=== PATIENT | female | born 1970 | race Caucasian/White ===

== ENCOUNTER 2019-10-13 08:41 | Emergency (ER) | payer MEDICAID ==
[2019-10-13] MEDS ORDERED: Sodium Chloride 0.9% Inhalation Soln 3 ML Neb INH PRN (09:15)
[2019-10-13] MEDS ORDERED: Racepinephrine 2.25% 0.5 ML Neb Soln NEB ONE (09:15)
[2019-10-13] MEDS ORDERED: LORazepam 2 MG/ML SDV IVPUSH ONE (09:17)
[2019-10-13] MEDS ORDERED: methylPREDNISolone Sodium Succinate 125 MG/2 ML SDV IVPUSH ONE (09:17)
[2019-10-13] MEDS ORDERED: Sodium Chloride 0.9% 10 ML Syringe FLUSH PRN (09:17)
--- NOTE | 2019-10-13 09:25 | EDM.PDOC ---
ED HPI GENERAL MEDICAL PROBLEM - General Chief Complaint: Respiratory Problem Stated Complaint: THROAT SWELLING FROM INFLUENZA B Time Seen by Provider: 10/13/19 09:08 Source of Information: Reports: Patient, Family, RN Notes Reviewed - History of Present Illness INITIAL COMMENTS - FREE TEXT/NARRATIVE: 41-year-old female comes in with symptoms of sore throat, difficulty breathing. Her throat is "swollen, making it difficult for her to breathe". She feels that she needs to cough but is is trying not to cough because of the throat discomfort that goes with that. Family member was ill with influenza last week did not get a flu shot this year. He does have some headache and achiness. It is extremely painful to swallow. She does not smoke. She denies history of asthma, COPD. Throat Pain Score (Numeric/FACES): 7 - Related Data Allergies Allergy/AdvReac Type Severity Reaction Status Date / Time No Known Allergies Allergy Verified 10/13/19 08:56 Home Meds: Home Meds FLUoxetine HCl [Fluoxetine HCl] 20 mg PO DAILY 08/26/18 [History] buPROPion [buPROPion XL] 150 mg PO BEDTIME 08/26/18 [History] Past Medical History - Past Health History Medical/Surgical History: Denies Medical/Surgical History Psychiatric History: Reports: Anxiety, Depression - Past Surgical History Musculoskeletal Surgical History: Reports: Other (See Below) Other Musculoskeletal Surgeries/Procedures:: bunion Social & Family History - Family History Family Medical History: Noncontributory - Tobacco Use Smoking Status *Q: Never Smoker - Caffeine Use Caffeine Use: Reports: None - Recreational Drug Use Recreational Drug Use: No - Living Situation & Occupation Living situation: Reports: , Single Occupation: Employed ED ROS GENERAL - Review of Systems Review Of Systems: See Below Constitutional: Reports: Fever, Chills HEENT: Reports: Rhinitis, Throat Pain Respiratory: Reports: Shortness of Breath (Mild nasal and sinus congestion), Wheezing, Cough (Nonproductive) Cardiovascular: Reports: Chest Pain GI/Abdominal: Denies: Abdominal Pain (With coughing), Nausea, Vomiting Skin: Denies: Rash Neurological: Reports: Headache ED EXAM, GENERAL - Physical Exam Exam: See Below General Appearance: Alert, Anxious, Moderate Distress Eye Exam: Bilateral Eye: PERRL Throat/Mouth: Normal Voice (Voice is hoarse), Other (Pharynx is mildly inflamed , no visible swelling) Head: No: Facial Swelling Neck: Supple. No: Lymphadenopathy (L), Lymphadenopathy (R) Respiratory/Chest: Respiratory Distress (Moderate tachypnea), Wheezing Cardiovascular: Tachycardia GI/Abdominal: Non-Tender Extremities: No: Pedal Edema, Leg Pain, Redness Neurological: Alert, No Motor/Sensory Deficits Skin Exam: Warm, Dry, Normal Color Course - Vital Signs Last Recorded V/S: Last Vital Signs Temp 99.2 F 10/13/19 08:53 Pulse 103 H 10/13/19 08:53 Resp 20 10/13/19 08:53 BP 120/86 10/13/19 08:53 Pulse Ox 100 10/13/19 08:53 - Orders/Labs/Meds Orders: Active Orders 24 hr Category Date Time Status Peripheral IV Care [RC] . DIRECTED Care 10/13/19 09:17 Active RT Aerosol Therapy [RC] ASDIRECTED Care 10/13/19 09:15 Active CXR [Chest 2V] [CR] Stat Exams 10/13/19 09:53 Taken CULTURE STREP A CONFIRMATION [RM] Stat Lab 10/13/19 09:26 Results STREP SCRN A RAPID W CULT CONF [RM] Stat Lab 10/13/19 09:26 Results Ketorolac [Toradol] Med 10/13/19 09:30 Active 30 mg IVPUSH ONETIME Sodium Chloride 0.9% Med 10/13/19 09:15 Active 3 ml INH ASDIRECTED PRN Sodium Chloride 0.9% [Normal Saline] 1,000 ml Med 10/13/19 09:30 Active IV ONETIME Sodium Chloride 0.9% [Saline Flush] Med 10/13/19 09:17 Active 10 ml FLUSH ASDIRECTED PRN Peripheral IV Insertion Adult [OM.PC] Stat Oth 10/13/19 09:17 Ordered Medication Orders Sodium Chloride (Normal Saline) 1,000 mls @ 999 mls/hr IV ONETIME GLADYS Last Admin: 10/13/19 09:34 Dose: 999 mls/hr Ketorolac Tromethamine (Toradol) 30 mg IVPUSH ONETIME GLADYS Last Admin: 10/13/19 09:35 Dose: 30 mg Sodium Chloride (Sodium Chloride 0.9%) 3 ml INH ASDIRECTED PRN PRN Reason: mix with racepinephrine neb Last Admin: 10/13/19 09:44 Dose: 3 ml Sodium Chloride (Saline Flush) 10 ml FLUSH ASDIRECTED PRN PRN Reason: Keep Vein Open Last Admin: 10/13/19 09:35 Dose: 10 ml Labs: Laboratory Tests 10/13/19 10/13/19 Range/Units 09:43 09:43 WBC 11.17 H (3.98-10.04) K/mm3 RBC 4.29 (3.98-5.22) M/mm3 Hgb 13.5 (11.2-15.7) gm/dl Hct 38.4 (34.1-44.9) % MCV 89.5 (79.4-94.8) fl MCH 31.5 (25.6-32.2) pg MCHC 35.2 (32.2-35.5) g/dl RDW Std Deviation 41.8 (36.4-46.3) fL Plt Count 160 L D (182-369) K/mm3 MPV 10.7 (9.4-12.3) fl Neut % (Auto) 79.4 H (34.0-71.1) % Lymph % (Auto) 9.6 L (19.3-51.7) % Pender % (Auto) 10.6 (4.7-12.5) % Eos % (Auto) 0 L (0.7-5.8) Baso % (Auto) 0.1 (0.1-1.2) % Neut # (Auto) 8.88 H (1.56-6.13) K/mm3 Lymph # (Auto) 1.07 L (1.18-3.74) K/mm3 Pender # (Auto) 1.18 H (0.24-0.36) K/mm3 Eos # (Auto) 0.00 L (0.04-0.36) K/mm3 Baso # (Auto) 0.01 (0.01-0.08) K/mm3 Manual Slide Review Abnormal smear C-Reactive Protein 5.3 H* (<1.0) mg/dL Meds: Medications Generic Name Dose Route Start Last Admin Trade Name Freq PRN Reason Stop Dose Admin Sodium Chloride 1,000 mls @ 999 mls/hr 10/13/19 09:30 10/13/19 09:34 Normal Saline IV 999 mls/hr ONETIME GLADYS Administration Ketorolac Tromethamine 30 mg 10/13/19 09:30 10/13/19 09:35 Toradol IVPUSH 30 mg ONETIME GLADYS Administration Sodium Chloride 3 ml 10/13/19 09:15 10/13/19 09:44 Sodium Chloride 0.9% INH 3 ml ASDIRECTED PRN Administration mix with racepinephrine neb Sodium Chloride 10 ml 10/13/19 09:17 10/13/19 09:35 Saline Flush FLUSH 10 ml ASDIRECTED PRN Administration Keep Vein Open Discontinued Medications Generic Name Dose Route Start Last Admin Trade Name Freq PRN Reason Stop Dose Admin Lorazepam 0.5 mg 10/13/19 09:17 10/13/19 09:34 Ativan IVPUSH 10/13/19 09:18 0.5 mg ONETIME ONE Administration Methylprednisolone Sodium Succinate 125 mg 10/13/19 09:17 10/13/19 09:36 Solu-Medrol IVPUSH 10/13/19 09:18 125 mg ONETIME ONE Administration Racepinephrine 0.5 ml 10/13/19 09:15 10/13/19 09:25 S-2 2.25% NEB 10/13/19 09:16 0.5 ml ONETIME ONE Administration - Re-Assessments/Exams Free Text/Narrative Re-Assessment/Exam: 10/13/19 11:02 Influenza screen did come back negative, strep screen also came back negative. White blood count 11,000, C-reactive protein 5.1. She did have exposure to influenza in the family this past week. Her symptoms all quite strongly suggestive for influenza. They started about 48 hours ago. Without a positive screen and toward the end of the time window I do not feel like Tamiflu is going to be of any great benefit. I also don't see that an antibiotic is strongly indicated at this time. We'll work on treating her symptoms with continued prednisone and hydrocodone if needed for severe pain. We have treated her symptoms with Toradol Ativan and Solu-Medrol IV along with a dual neb treatment and she is resting and breathing much more comfortably at this time. She does feel up to going home. Discharge instructions as documented. Departure - Departure Time of Disposition: 10:49 Disposition: Home, Self-Care 01 Clinical Impression: Pharyngitis, Viral upper respiratory infection - Discharge Information Referrals: PCP,Unknown [Ordering Only Provider] - Forms: ED Department Discharge Additional Instructions: You may alternate Tylenol with Advil or ibuprofen for discomfort or take hydrocodone if needed for severe pain. Do not take Tylenol and hydrocodone at the same time. Do not drive when taking hydrocodone. Prednisone 40 mg this late afternoon or early evening and then 40 mg for the next 3or4 mornings until symptoms resolving. Symptoms should be much better within 2-3 days. Follow-up clinic if not much better within 2-3 days, return to ED if symptoms worsening in any way. Sepsis Event Note - Evaluation Sepsis Screening Result: No Definite Risk - Focused Exam Vital Signs: Vital Signs Temp Pulse Resp BP Pulse Ox 10/13/19 08:53 99.2 F 103 H 20 120/86 100 Date Exam was Performed: 10/13/19 Time Exam was Performed: 11:02 - My Orders Last 24 Hours: My Active Orders 10/13/19 09:15 RT Aerosol Therapy [RC] ASDIRECTED Sodium Chloride 0.9% 3 ml INH ASDIRECTED PRN 10/13/19 09:17 Peripheral IV Care [RC] . DIRECTED Sodium Chloride 0.9% [Saline Flush] 10 ml FLUSH ASDIRECTED PRN Peripheral IV Insertion Adult [OM.PC] Stat 10/13/19 09:26 CULTURE STREP A CONFIRMATION [RM] Stat STREP SCRN A RAPID W CULT CONF [RM] Stat 10/13/19 09:30 Ketorolac [Toradol] 30 mg IVPUSH ONETIME Sodium Chloride 0.9% [Normal Saline] 1,000 ml IV ONETIME 10/13/19 09:53 CXR [Chest 2V] [CR] Stat - Assessment/Plan Last 24 Hours: My Active Orders 10/13/19 09:15 RT Aerosol Therapy [RC] ASDIRECTED Sodium Chloride 0.9% 3 ml INH ASDIRECTED PRN 10/13/19 09:17 Peripheral IV Care [RC] . DIRECTED Sodium Chloride 0.9% [Saline Flush] 10 ml FLUSH ASDIRECTED PRN Peripheral IV Insertion Adult [OM.PC] Stat 10/13/19 09:26 CULTURE STREP A CONFIRMATION [RM] Stat STREP SCRN A RAPID W CULT CONF [RM] Stat 10/13/19 09:30 Ketorolac [Toradol] 30 mg IVPUSH ONETIME Sodium Chloride 0.9% [Normal Saline] 1,000 ml IV ONETIME 10/13/19 09:53 CXR [Chest 2V] [CR] Stat
[2019-10-13] MEDS ORDERED: Ketorolac 30 MG/ML SDV IVPUSH SCH (09:30)
[2019-10-13] MEDS ORDERED: Sodium Chloride 0.9% 1,000 ML IV SCH (09:30)
--- NOTE | 2019-10-13 11:49 | CR ---
Chest: 2 views of the chest were obtained. Comparison: No prior chest imaging is available. Heart size and mediastinum are normal. Lungs show no acute parenchymal change. Bony structures are unremarkable. Diaphragms are slightly flattened on the lateral view. Impression: 1. Lungs slightly hyperinflated raising the possibility of emphysematous change or change from asthma. Please correlate. 2. Nothing acute is otherwise seen on 2 view chest x-ray. Diagnostic code #2 This report was dictated in [place] Standard Time
== END 2019-10-13 11:13 | disposition home or self-care (01) ==
LOC: JD.ED 08:41
DX: J02.9 Acute pharyngitis, unspecified (principal); B34.9 Viral infection, unspecified; F41.9 Anxiety disorder, unspecified; F32.9 Major depressive disorder, single episode, unspecified; Z79.899 Other long term (current) drug therapy
CPT/HCPCS: 36415; 71046; 85025; 86140; 87081; 87430; 87804; 94640; 96361; 96374; 96375; 99285; A9270; J1885; J2060; J2930; J7030

== ENCOUNTER 2023-08-09 18:42 | Emergency (ER) | payer MEDICAID ==
[2023-08-09] MEDS ORDERED: Metoclopramide 10 MG/2 ML SDV IVPUSH ONE (19:49)
[2023-08-09] MEDS ORDERED: diphenhydrAMINE 50 MG/ML SDV IVPUSH ONE (19:49)
[2023-08-09] MEDS ORDERED: HYDROmorphone 0.5 MG/0.5 ML Syringe IVPUSH ONE (19:50)
[2023-08-09] MEDS ORDERED: Sodium Chloride 0.9% 1,000 ML IV SCH (20:00)
[2023-08-09 20:53] LABS: CORONAVIRUS COVID-19 NAA NEGATIVE (NEGATIVE); INFLUENZA A NAA NEGATIVE (NEGATIVE); RESPIRATORY SYNCYTIAL VIR NAA NEGATIVE (NEGATIVE)
[2023-08-09] MEDS ORDERED: Amoxicillin/Clavulanate K 875-125 MG Tab PO SCH (21:00)
== END 2023-08-09 21:10 | disposition home or self-care (01) ==
LOC: JD.ED 18:42
DX: G44.209 Tension-type headache, unspecified, not intractable (principal); J32.9 Chronic sinusitis, unspecified; Z20.822 Contact with and (suspected) exposure to COVID-19
CPT/HCPCS: 0241U; 96361; 96374; 96375; 99284; A9270; J1170; J1200; J2765; J7030; 99283

== ENCOUNTER 2023-09-01 08:55 | Day surgery (SDC) | payer MEDICAID ==
[~2023-09-01 08:55] MED LIST: Dexamethasone 4 MG/ML 5 ML MDV ONE; Dexmedetomidine 200 MCG/2 ML SDV ONE; EPINEPHrine 1 MG/ML SDV ONE; Ketorolac 30 MG/ML SDV ONE; Lactated Ringers 1,000 ML IV SCH; Lidocaine 1% 4 ML ONE; Midazolam 1 MG/ML 2 ML SDV ONE; Ondansetron 4 MG/2 ML SDV ONE; Propofol 200 MG/20 ML SDV ONE; Rocuronium 50 MG/5 ML Vial ONE; Ropivacaine 0.5% 5 MG/ML 30 ML SDV ONE; Sodium Chloride 0.9% 10 ML Syringe FLUSH PRN; Sodium Chloride 0.9% 10 ML Syringe FLUSH SCH; ceFAZolin 2 GM Vial ONE; fentaNYL 100 MCG/2 ML SDV ONE
[2023-09-01] MEDS ORDERED: EPINEPHrine 1 MG/ML SDV ONE (10:18)
[2023-09-01] MEDS ORDERED: ePHEDrine 50 MG/ML SDV ONE (11:13)
[2023-09-01] MEDS ORDERED: Phenylephrine 1% 10 MG/ML SDV ONE (11:15)
[2023-09-01] MEDS ORDERED: Ondansetron 4 MG/2 ML SDV IVPUSH PRN (12:10)
[2023-09-01] MEDS ORDERED: fentaNYL 100 MCG/2 ML SDV IVPUSH PRN (12:10)
[2023-09-01] MEDS ORDERED: HYDROmorphone 0.5 MG/0.5 ML Syringe IVPUSH PRN (12:10)
[2023-09-01] MEDS ORDERED: Acetaminophen/HYDROcodone 325-5 MG Tab PO PRN (12:25)
== END 2023-09-01 14:02 | disposition home or self-care (01) ==
LOC: JD.SDS 08:55
PROVIDERS: ATTEND Orthopaedic Surgery
DX: M75.101 Unspecified rotator cuff tear or rupture of right shoulder, not specified as traumatic (principal); M25.511 Pain in right shoulder; F32.A Depression, unspecified; E16.2 Hypoglycemia, unspecified
CPT/HCPCS: 01630; 64415; J0171; J0690; J1100; J1885; J2250; J2371; J2405; J2704; J2795; J3010; J3370; J3490; J7050; J7120

== ENCOUNTER 2023-10-23 06:30 | Day surgery (SDC) | payer MEDICAID ==
[2023-10-23] MEDS ORDERED: Lactated Ringers 1,000 ML IV SCH (06:45)
[2023-10-23] MEDS ORDERED: Tranexamic Acid 1,000 MG/10 ML Vial ONE (06:56)
[2023-10-23] MEDS ORDERED: Vancomycin 1 GM SDV ONE (06:56)
[2023-10-23] MEDS ORDERED: fentaNYL 100 MCG/2 ML SDV ONE (06:57)
[2023-10-23] MEDS ORDERED: Propofol 200 MG/20 ML SDV ONE (06:57)
[2023-10-23] MEDS ORDERED: Dexamethasone 4 MG/ML 5 ML MDV ONE (06:58)
[2023-10-23] MEDS ORDERED: Rocuronium 50 MG/5 ML Vial ONE (06:58)
[2023-10-23] MEDS ORDERED: ceFAZolin 2 GM Vial ONE (06:58)
[2023-10-23] MEDS ORDERED: Succinylcholine 200 MG/10 ML MDV ONE (06:58)
[2023-10-23] MEDS ORDERED: Metoclopramide 10 MG/2 ML SDV ONE (06:58)
[2023-10-23] MEDS ORDERED: Midazolam 1 MG/ML 2 ML SDV ONE ×2 (06:58→08:14)
[2023-10-23] MEDS ORDERED: Lidocaine 2% 5 ML SDV ONE (06:59)
[2023-10-23] MEDS ORDERED: EPINEPHrine 1 MG/ML SDV ONE (07:24)
[2023-10-23] MEDS ORDERED: Ropivacaine 0.5% 5 MG/ML 30 ML SDV ONE (08:00)
[2023-10-23] MEDS ORDERED: HYDROmorphone 0.5 MG/0.5 ML Syringe IVPUSH PRN (09:20)
[2023-10-23] MEDS ORDERED: Ondansetron 4 MG/2 ML SDV IVPUSH PRN (09:20)
[2023-10-23] MEDS ORDERED: fentaNYL 100 MCG/2 ML SDV IVPUSH PRN (09:20)
[2023-10-23] MEDS ORDERED: Lactated Ringers 1,000 ML ONE (09:24)
[2023-10-23] MEDS ORDERED: Neostigmine Methylsulfate 10 MG/10 ML MDV ONE (09:32)
[2023-10-23] MEDS ORDERED: Cyclobenzaprine 10 MG Tab PO PRN (10:04)
[2023-10-23] MEDS ORDERED: oxyCODONE 5 MG Tab PO PRN (10:04)
== END 2023-10-23 13:30 | disposition home or self-care (01) ==
LOC: JD.SDS 06:30
PROVIDERS: ATTEND Orthopaedic Surgery
DX: M75.101 Unspecified rotator cuff tear or rupture of right shoulder, not specified as traumatic (principal); F32.A Depression, unspecified; F41.9 Anxiety disorder, unspecified; Z79.899 Other long term (current) drug therapy
CPT/HCPCS: 0055T; 23472; 76000; 97161; A9270; C1713; C1776; J0171; J0330; J0690; J1100; J2250; J2704; J2710; J2765; J2795; J3010; J3370; J7030; J7120; 01638; J3490

== ENCOUNTER 2024-07-14 00:48 | Emergency (ER) | payer MEDICAID ==
[2024-07-14] MEDS ORDERED: Sodium Chloride 0.9% 10 ML Syringe FLUSH PRN (01:05)
[2024-07-14 01:14] LABS: BASOPHILS PERCENT AUTO 0.4 % (0.0-1.0); EOSINOPHILS ABSOLUTE AUTO 0.2 K/mm3 (0.0-0.4); EOSINOPHILS PERCENT AUTO 2.6 % (0.0-6.0); HEMATOCRIT 32.2 % (37.0-47.0); HEMOGLOBIN 10.8 gm/dl (12.0-16.0); IMMATURE GRAN ABSOLUTE AUTO 0.01 K/mm3 (0.00-0.05); IMMATURE GRAN PERCENT AUTO 0.1 % (0.0-0.4); LYMPHOCYTES ABSOLUTE AUTO 3.1 K/mm3 (1.0-4.8); LYMPHOCYTES PERCENT AUTO 41.7 % (24.0-44.0); MEAN CORPUSCULAR HEMOGLOBIN 30.3 pg (28.0-32.0); MEAN CORPUSCULAR HGB CONC 33.5 g/dl (32.0-36.0); MEAN CORPUSCULAR VOLUME 90.2 fl (83.0-99.0); MEAN PLATELET VOLUME 10.2 fl (9.4-12.3); MONOCYTES ABSOLUTE AUTO 0.9 K/mm3 (0.0-0.8); MONOCYTES PERCENT AUTO 11.5 % (0.0-8.0); NEUTROPHILS ABSOLUTE AUTO 3.3 K/mm3 (1.8-7.7); NEUTROPHILS PERCENT AUTO 43.7 % (41.0-71.0); PLATELET COUNT,PLT 209 K/mm3 (150-400); RED BLOOD CELL COUNT 3.57 M/mm3 (4.10-5.30); WHITE BLOOD CELL COUNT,WBC 7.45 K/mm3 (3.9-11.3)
[2024-07-14] MEDS: Ondansetron 4 MG/2 ML SDV IVPUSH ONE (01:14)
[2024-07-14] MEDS: HYDROmorphone 0.5 MG/0.5 ML Syringe IVPUSH ONE ×2 (01:15→04:07)
[2024-07-14] MEDS: Ketorolac 30 MG/ML SDV IVPUSH ONE (01:16)
[2024-07-14] MEDS: Sodium Chloride 0.9% 1,000 ML IV SCH (01:17)
[2024-07-14 01:40] LABS: A/G RATIO 1.1 (1-2); ALBUMIN 3.6 g/dl (3.4-5.0); BILIRUBIN TOTAL 0.3 mg/dL (0.2-1.0); BUN/CREATININE RATIO 19.1 (14-18); CALCIUM 9.7 mg/dL (8.5-10.1); CREATININE 1.1 mg/dL (0.55-1.02); EST CRCL DRUG DOSING (CG) 47.32 mL/min
[2024-07-14 02:18] LABS: APPEARANCE,URINE SLT CLOUDY (Clear); BILIRUBIN,URINE NEGATIVE (Negative); COLOR,URINE YELLOW (Yellow); GLUCOSE,URINE NEGATIVE (Negative); KETONES,URINE NEGATIVE (Negative); LEUKOCYTE ESTERASE,URINE NEGATIVE (Negative); NITRITE,URINE POSITIVE (Negative); OCCULT BLOOD,URINE 2+ (Negative); PROTEIN,URINE 1+ (Negative); UROBILINOGEN,URINE 0.2 (0.2-1.0)
[2024-07-14 02:27] LABS: BACTERIA,URINE MANY /hpf (FEW); EPITHELIAL CELLS,URINE 0-5 /hpf (0-5); HYALINE CASTS,URINE 0-5 /lpf (0-5); RBC,URINE 20-30 /hpf (0-5)
[2024-07-14 02:28] LABS: MUCUS,URINE NOT SEEN /hpf (FEW)
[2024-07-14] MEDS: cefTRIAXone 1 GM in Sodium Chloride 0.9% 100 ML IV ONE (02:41)
== END 2024-07-14 04:15 ==
LOC: JD.ED 00:48
DX: N13.2 Hydronephrosis with renal and ureteral calculous obstruction (principal); N39.0 Urinary tract infection, site not specified; Z79.899 Other long term (current) drug therapy
CPT/HCPCS: 36415; 74176; 80053; 81001; 83690; 85025; 87086; 96361; 96365; 96375; 96376; 99285; J0696; J1170; J1885; J2405; J3490; J7030; 87088; 87186